=== PATIENT | female | born 1970 | race Two or more races ===

== ENCOUNTER 2017-01-30 06:22 | Day surgery (SDC) | payer OTHER ==
[2017-01-29 16:02] LABS: CHLORIDE,CL 108 mmol/L (98-110); SODIUM,NA 140 mmol/L (136-146)
[~2017-01-30 06:22] MED LIST: Lactated Ringers 1,000 ML IV SCH; Sodium Chloride 0.9% 10 ML Syringe FLUSH PRN; Sodium Chloride 0.9% 2.5 ML Syringe FLUSH PRN
--- NOTE | 2017-01-30 06:55 | PCM.PREANE ---
Preanesthetic Assessment - Anesthesia/Transfusion/Family Hx Anesthesia History: Prior Anesthesia Without Reaction Other Type of Anesthesia Reaction Comment: something in her spinal made her itch during Family History of Anesthesia Reaction: No Transfusion History: No Prior Transfusion(s) - Review of Systems General: No Symptoms Pulmonary: No Symptoms Cardiovascular: No Symptoms Gastrointestinal: No symptoms Neurological: No Symptoms Other: Reports: None - Physical Assessment O2 Sat by Pulse Oximetry: 100 Respiratory Rate: 16 Vital Signs: Last Vital Signs Temp 36.7 C 01/30/17 06:36 Pulse 73 01/30/17 06:36 Resp 16 01/30/17 06:36 BP 140/62 01/30/17 06:36 Pulse Ox 100 01/30/17 06:36 Height: 1.65 m Weight: 93.894 kg ASA Class: 2 Mental Status: Alert & Oriented x3 Airway Class: Mallampati = 2 Dentition: Reports: Normal Dentition Thyro-Mental Finger Breadths: 2 Mouth Opening Finger Breadths: 3 ROM/Head Extension: Full Lungs: Clear to auscultation, Normal respiratory effort Cardiovascular: Regular Rate, Regular Rhythm, No Murmurs - Lab Values: Laboratory Last Values WBC 7.03 K/uL (4.0-11.0) 01/29/17 14:31 RBC 4.90 M/uL (4.30-5.90) 01/29/17 14:31 Hgb 9.5 g/dL (12.0-16.0) L 01/29/17 14:31 Hct 32.1 % (36.0-46.0) L 01/29/17 14:31 MCV 65.5 fL (80.0-98.0) L 01/29/17 14:31 MCH 19.4 pg (27.0-32.0) L 01/29/17 14:31 MCHC 29.6 g/dL (31.0-37.0) L 01/29/17 14:31 RDW Std Deviation 47.1 fl (28.0-62.0) 01/29/17 14:31 RDW Coeff of Merrill 20 % (11.0-15.0) H 01/29/17 14:31 Plt Count 470 K/uL (150-400) H 01/29/17 14:31 MPV 9.20 fL (7.40-12.00) 01/29/17 14:31 Nucleated RBC % 0.0 /100WBC 01/29/17 14:31 Nucleated RBCs # 0 K/uL 01/29/17 14:31 Sodium 140 mmol/L (136-146) 01/29/17 14:31 Potassium 4.3 mmol/L (3.5-5.1) 01/29/17 14:31 Chloride 108 mmol/L (98-110) 01/29/17 14:31 Carbon Dioxide 22 mmol/L (21-31) 01/29/17 14:31 BUN 13 mg/dL (6.0-23.0) 01/29/17 14:31 Creatinine 0.7 mg/dL (0.6-1.5) 01/29/17 14:31 Est Cr Clr Drug Dosing 90.36 mL/min 01/29/17 14:31 Estimated GFR (MDRD) > 60.0 ml/min 01/29/17 14:31 Glucose 93 mg/dL (60-110) 01/29/17 14:31 Calcium 8.8 mg/dL (8.8-10.8) 01/29/17 14:31 HCG, Qual NEGATIVE (NEG) 01/29/17 14:31 Blood Type A NEGATIVE 01/29/17 14:31 Antibody Screen NEGATIVE 01/29/17 14:31 - Allergies Allergies/Adverse Reactions: Allergies Allergy/AdvReac Type Severity Reaction Status Date / Time No Known Allergies Allergy Verified 01/27/17 12:54 - Blood Blood Available: No - Anesthesia Plan Pre-Op Medication Ordered: None - Acknowledgements Anesthesia Type Planned: General Anesthesia Pt an Appropriate Candidate for the Planned Anesthesia: Yes Alternatives and Risks of Anesthesia Discussed w Pt/Guardian: Yes Pt/Guardian Understands and Agrees with Anesthesia Plan: Yes PreAnesthesia Questionnaire Other HEENT History: wears glasses/contacts Cardiovascular History: Reports: None Respiratory History: Reports: None Gastrointestinal History: Reports: None Genitourinary History: Reports: None ERGONOMICS CONSULTANT History: Reports: Fibroids, , Other (see below) ( menometrorrhagia) Musculoskeletal History: Reports: None Neurological History: Reports: None Psychiatric History: Reports: None Endocrine/Metabolic History: Reports: Obesity/BMI 30+ Hematologic History: Reports: Anemia Other Hematologic History: has had recent iron infusions Immunologic History: Reports: None Oncologic (Cancer) History: Reports: None Dermatologic History: Reports: None - Past Surgical History Head Surgeries/Procedures: Reports: None HEENT Surgical History: Reports: Oral surgery Other HEENT Surgeries/Procedures: removal of wisdom teeth Cardiovascular Surgical History: Reports: None Respiratory Surgical History: Reports: None GI Surgical History: Reports: None Female Surgical History: Reports: Breast reduction, section (x3) Endocrine Surgical History: Reports: None Neurological Surgical History: Reports: None Musculoskeletal Surgical History: Reports: None Oncologic Surgical History: Reports: None Dermatological Surgical History: Reports: None - SUBSTANCE USE Smoking Status *Q: Former Smoker (long time ago) Recreational Drug Use History: No - HOME MEDS Home Medications: Home Meds Cholecalciferol (Vitamin D3) [Vitamin D3] 50,000 units PO ASDIRECTED 01/27/17 [ History] Fluticasone Propionate [Flonase Allergy Relief] 1 sprays NASBOTH ASDIRECTED PRN 01/27/17 [History] - CURRENT (IN HOUSE) MEDS Current Meds: Current Medications Lactated Ringer's (Ringers, Lactated) 1,000 mls @ 500 mls/hr IV .BOLUS COBY Last Admin: 01/30/17 06:41 Dose: 500 mls/hr Cefazolin Sodium 3 gm/ Sodium (Chloride) 100 mls @ 100 mls/hr IV ONETIME COBY Stop: 01/30/17 11:14 Sodium Chloride (Saline Flush) 10 ml FLUSH ASDIRECTED PRN PRN Reason: Keep Vein Open Sodium Chloride (Saline Flush) 2.5 ml FLUSH ASDIRECTED PRN PRN Reason: Keep Vein Open
[2017-01-30] MEDS ORDERED: Lidocaine 2% 5 ML SDV ONE (07:33)
[2017-01-30] MEDS ORDERED: Midazolam 1 MG/ML 2 ML SDV ONE (07:33)
[2017-01-30] MEDS ORDERED: fentaNYL 100 MCG/2 ML SDV ONE ×2 (07:33→09:19)
[2017-01-30] MEDS ORDERED: Propofol 200 MG/20 ML SDV ONE ×2 (07:33→08:51)
[2017-01-30] MEDS ORDERED: fentaNYL 250 MCG/5 ML SDV ONE (07:33)
[2017-01-30] MEDS ORDERED: Neostigmine Methylsulfate 1 MG/ML 5 ML Syringe ONE (07:34)
[2017-01-30] MEDS ORDERED: Ondansetron 4 MG/2 ML SDV ONE (07:34)
[2017-01-30] MEDS ORDERED: Ketorolac 30 MG/ML SDV ONE (07:34)
[2017-01-30] MEDS ORDERED: Rocuronium 10 MG/ML 10 ML Syringe ONE (07:34)
[2017-01-30] MEDS ORDERED: Fluorescein 5 ML Vial ONE (07:47)
[2017-01-30] MEDS ORDERED: Octyl 2-Cyanoacrylate 1 Tube ONE (07:47)
[2017-01-30] MEDS ORDERED: HYDROmorphone 2 MG/ML Syringe ONE (08:08)
[2017-01-30] MEDS ORDERED: fentaNYL 100 MCG/2 ML SDV IVPUSH PRN (08:39)
[2017-01-30] MEDS ORDERED: HYDROmorphone 2 MG/ML Syringe IVPUSH ONE (08:39)
[2017-01-30] MEDS ORDERED: Furosemide 40 MG/4 ML VIAL ONE (09:22)
[2017-01-30] MEDS ORDERED: Ondansetron 4 MG/2 ML SDV IVPUSH PRN (09:39)
[2017-01-30] MEDS ORDERED: Ketorolac 30 MG/ML SDV IVPUSH PRN (09:39)
[2017-01-30] MEDS ORDERED: Morphine 4 MG/ML Syringe IVPUSH PRN (09:39)
[2017-01-30] MEDS ORDERED: Ketorolac 30 MG/ML SDV IVPUSH ONE (09:39)
[2017-01-30] MEDS ORDERED: Promethazine 25 MG/ML SDV IM PRN (09:39)
--- NOTE | 2017-01-30 09:43 | PCM.OPNOTE ---
- General Post-Op/Procedure Note Date of Surgery/Procedure: 01/30/17 Operative Procedure(s): TLH BSO Cysto Post-Op Diagnosis: Same Anesthesia Technique: General ET tube Primary Surgeon: Louis Tyler Electronic Assembler Group Leader: Jacy Ralph EBL in mLs: 125 Complications: None Condition: Good
--- NOTE | 2017-01-30 13:56 | OR ---
SURGEON: Louis Tyler MD DATE OF PROCEDURE: PREOPERATIVE DIAGNOSES: 1. Menometrorrhagia. 2. Fibroid uterus, 16 week size. 3. Anemia. POSTOPERATIVE DIAGNOSES: 1. Menometrorrhagia. 2. Fibroid uterus, 16 week size. 3. Anemia. OPERATION PERFORMED: Total laparoscopic hysterectomy, laparoscopic bilateral salpingo-oophorectomy, morcellation of the uterus vaginally, and cystoscopy. STRINGING MACHINE OPERATOR: SWAPNIL Ochoa. ANESTHESIA: General endotracheal intubation by Nico Puga and Dr. Wyatt. ESTIMATED BLOOD LOSS: 125 mL. COMPLICATIONS: None. FINDINGS: Uterus about 16-17 week size with multiple fibroid. INDICATION: [place] refer to the admit note. DESCRIPTION OF PROCEDURE: The patient was brought to the OR, properly identified, and after adequate level of general anesthesia, the patient was placed in lithotomy position with an access to the abdomen and the vagina. The patient was prepped and draped in sterile fashion as usual. Kline catheter was placed in the bladder for drainage and Tommie surgical manipulator was placed in the uterus for manipulation and the internal balloon and external balloon were inflated and held in place. Then, the operation shifted abdominally. Stab wound was done beneath the umbilicus. The Veress needle was placed in the peritoneal cavity and that cavity insufflated to 6 L carbon dioxide. The skin incision was enlarged to accommodate the trocar and the laparoscope through a 5-mm trocar utilizing the Visiport technique to enter. Once we are entered, the patient was placed in steep Trendelenburg and 10-12 trocar placed in the left iliac fossa and two 5 mm trocar, one suprapubically, one in the right iliac fossa done under direct vision. The operation started by identifying the landmark of the pelvis and the round ligament in superior ligament and the ovarian pedicle. Then, we started by making sure the ureter away from harm's way, the superior pedicles, which is coagulated, transected using the BETTINA-7 harmonic scapula. The tubes and ovaries included with the specimen. Then, the round ligament was done in the same way and then the anterior leaf of the broad ligament dissected downward medially. The patient has had 3 previous section with a sharp and blunt dissection. The bladder was totally dissected away from the operative field and easily palpable through the vagina. Then skeletonization of the uterine vessel was done and then again with the ureter away from harm's way the uterine vessel coagulated, transected on both sides using the BETTINA-7 Harmonic scapula, and then using the BETTINA-7 Harmonic scapula circular incision was done at the tip of the rings of the manipulator in a circular manner detaching the cervix from its attachment to the vagina. Once this was done, then with the operation shifted vaginally and I started morcellating the uterus in the usual manner. To reduce the size, once the morcellation was done and complete, the uterus was easily removed. Once the uterus was removed, then vaginal pack was placed in the vagina and the abdomen reinflated, thorough irrigation of the abdomen that shows no oozing, no bleeding. I proceeded to close the vaginal cuff laparoscopically using 2-0 PDS interrupted suture. While we were doing that, we asked the anesthesiologist to give the patient fluorescein and after closing the vagina, all the pedicle inspected. There was no oozing, no bleeding. Then, the abdomen was deflated and the patient was placed flat on the table. The Kline catheter was removed. Cystoscopy was performed. The bladder was intact. Both ureteric orifices were seen with the dye coming from both of them. Thus, the patency of the both ureters verified, satisfied with these findings. The procedure was ended after closing the laparoscopic incision in layer. Instrument and sponge count were correct. The patient tolerated the procedure well and went to recovery room in stable general condition. BHAVNA / MEAGAN /[id number]
[2017-01-30] MEDS: Acetaminophen/oxyCODONE 325-5 MG Tab PO PRN (16:52)
--- NOTE | 2017-01-30 20:51 | PCM48HPAN ---
Post Anesthesia Note - EVALUATION WITHIN 48HRS OF ANESTHETIC Vital Signs in Normal Range: Yes Patient Participated in Evaluation: Yes Respiratory Function Stable: Yes Airway Patent: Yes Cardiovascular Function Stable: Yes Hydration Status Stable: Yes Pain Control Satisfactory: Yes Nausea and Vomiting Control Satisfactory: No (a little nausea recieving zofran) Mental Status Recovered: Yes
[2017-01-31] MEDS: Acetaminophen/oxyCODONE 325-5 MG Tab PO PRN (03:46)
[2017-01-31 05:25] LABS: CHLORIDE,CL 108 mmol/L (98-110); SODIUM,NA 137 mmol/L (136-146)
[2017-01-31 08:14] VITALS: BP 107/59
--- NOTE | 2017-01-31 08:38 | PCM.SURGPN ---
- General Info Date of Service: 01/31/17 POD#: 1 Functional Status: Reports: pain controlled - Review of Systems General: Reports: No Symptoms HEENT: Reports: no symptoms Pulmonary: Reports: no symptoms Cardiovascular: Reports: No Symptoms Gastrointestinal: Reports: No symptoms Genitourinary: Reports: no symptoms Musculoskeletal: Reports: no symptoms Skin: Reports: no symptoms Neurological: Reports: No Symptoms Psychiatric: Reports: no symptoms - Patient Data Vitals - most recent: Last Vital Signs Temp 37.2 C 01/31/17 08:00 Pulse 71 01/31/17 08:00 Resp 18 01/31/17 08:00 BP 107/59 L 01/31/17 08:00 Pulse Ox 96 01/31/17 08:00 Weight - most recent: 93.894 kg I&O - last 24 hours: Intake & Output 01/30/17 01/31/17 01/31/17 22:59 06:59 14:59 Output Total 400 Balance -400 Lab Results last 24 hrs: Laboratory Results - last 24 hr 01/31/17 01/31/17 Range/Units 04:48 04:48 WBC 8.71 (4.0-11.0) K/uL RBC 4.54 (4.30-5.90) M/uL Hgb 8.6 L (12.0-16.0) g/dL Hct 29.5 L (36.0-46.0) % MCV 65.0 L (80.0-98.0) fL MCH 18.9 L (27.0-32.0) pg MCHC 29.2 L (31.0-37.0) g/dL RDW Std Deviation 45.6 (28.0-62.0) fl RDW Coeff of Merrill 19 H (11.0-15.0) % Plt Count 395 (150-400) K/uL MPV 9.40 (7.40-12.00) fL Neut % (Auto) 69.7 (48.0-80.0) % Lymph % (Auto) 16.2 (16.0-40.0) % Irwin % (Auto) 12.2 (0.0-15.0) % Eos % (Auto) 1.4 (0.0-7.0) % Baso % (Auto) 0.5 (0.0-1.5) % Neut # (Auto) 6.1 H (1.4-5.7) K/uL Lymph # (Auto) 1.4 (0.6-2.4) K/uL Irwin # (Auto) 1.1 H (0.0-0.8) K/uL Eos # (Auto) 0.1 (0.0-0.7) K/uL Baso # (Auto) 0.0 (0.0-0.1) K/uL Nucleated RBC % 0.0 /100WBC Nucleated RBCs # 0 K/uL Sodium 137 (136-146) mmol/L Potassium 4.2 (3.5-5.1) mmol/L Chloride 108 (98-110) mmol/L Carbon Dioxide 21 (21-31) mmol/L BUN 7 (6.0-23.0) mg/dL Creatinine 0.7 (0.6-1.5) mg/dL Est Cr Clr Drug Dosing 90.36 mL/min Estimated GFR (MDRD) > 60.0 ml/min Glucose 116 H (60-110) mg/dL Calcium 8.3 L (8.8-10.8) mg/dL Med Orders - Current: Current Medications Fentanyl (Sublimaze) 50 mcg IVPUSH Q5M PRN PRN Reason: Pain (severe 7-10) Stop: 01/31/17 08:39 Lactated Ringer's (Ringers, Lactated) 1,000 mls @ 500 mls/hr IV .BOLUS COBY Last Admin: 01/30/17 06:41 Dose: 500 mls/hr Ketorolac Tromethamine (Toradol) 30 mg IVPUSH Q6H PRN PRN Reason: Pain (severe 7-10) Stop: 02/04/17 09:40 Morphine Sulfate (Morphine) 4 mg IVPUSH Q2H PRN PRN Reason: Pain (severe 7-10) Ondansetron HCl (Zofran) 4 mg IVPUSH Q6H PRN PRN Reason: Nausea/Vomiting Last Admin: 01/30/17 20:12 Dose: 4 mg Oxycodone/Acetaminophen (Percocet 325-5 Mg) 2 tab PO Q4H PRN PRN Reason: Pain (moderate 4-6) Last Admin: 01/31/17 03:46 Dose: 1 tab Promethazine HCl (Phenergan) 25 mg IM Q6H PRN PRN Reason: Nausea/Vomiting Sodium Chloride (Saline Flush) 10 ml FLUSH ASDIRECTED PRN PRN Reason: Keep Vein Open Sodium Chloride (Saline Flush) 2.5 ml FLUSH ASDIRECTED PRN PRN Reason: Keep Vein Open Discontinued Medications Fentanyl (Sublimaze) Confirm Administered Dose 100 mcg .ROUTE .STK-MED ONE Stop: 01/30/17 07:34 Fentanyl (Sublimaze) Confirm Administered Dose 250 mcg .ROUTE .STK-MED ONE Stop: 01/30/17 07:34 Fentanyl (Sublimaze) Confirm Administered Dose 100 mcg .ROUTE .STK-MED ONE Stop: 01/30/17 09:20 Fluorescein Sodium (Ak-Fluor) Confirm Administered Dose 5 ml .ROUTE .STK-MED ONE Stop: 01/30/17 07:48 Furosemide (Lasix) Confirm Administered Dose 40 mg .ROUTE .STK-MED ONE Stop: 01/30/17 09:23 Glycopyrrolate () Confirm Administered Dose 1 mg .ROUTE .STK-MED ONE Stop: 01/30/17 07:35 Hydromorphone HCl (Dilaudid) Confirm Administered Dose 2 mg .ROUTE .STK-MED ONE Stop: 01/30/17 08:09 Hydromorphone HCl (Dilaudid) 0 mg IVPUSH ONETIME ONE Stop: 01/30/17 08:40 Cefazolin Sodium 3 gm/ Sodium (Chloride) 100 mls @ 100 mls/hr IV ONETIME COBY Stop: 01/30/17 11:14 Ketorolac Tromethamine (Toradol) Confirm Administered Dose 30 mg .ROUTE .STK- MED ONE Stop: 01/30/17 07:35 Ketorolac Tromethamine (Toradol) 30 mg IVPUSH ONETIME ONE Stop: 01/30/17 09:40 Lidocaine (Xylocaine-Mpf 2%) Confirm Administered Dose 10 ml .ROUTE .STK-MED ONE Stop: 01/30/17 07:34 Midazolam HCl (Versed 1 Mg/Ml) Confirm Administered Dose 2 mg .ROUTE .STK-MED ONE Stop: 01/30/17 07:34 Neostigmine Methylsulfate (Neostigmine) Confirm Administered Dose 5 mg .ROUTE .STK-MED ONE Stop: 01/30/17 07:35 Octyl Cyanoacrylate (Dermabond Advance) Confirm Administered Dose 1 applic .ROUTE .STK-MED ONE Stop: 01/30/17 07:48 Ondansetron HCl (Zofran) Confirm Administered Dose 4 mg .ROUTE .STK-MED ONE Stop: 01/30/17 07:35 Propofol (Diprivan 20 Ml) Confirm Administered Dose 400 mg .ROUTE .STK-MED ONE Stop: 01/30/17 07:34 Propofol (Diprivan 20 Ml) Confirm Administered Dose 200 mg .ROUTE .STK-MED ONE Stop: 01/30/17 08:52 Rocuronium [place] (Zemuron) Confirm Administered Dose 100 mg .ROUTE .STK-MED ONE Stop: 01/30/17 07:35 - Exam Wound/Incisions: healing well General: alert, oriented HEENT: Pupils equal Neck: supple Lungs: Clear to auscultation, Normal respiratory effort Cardiovascular: Regular Rate, Regular Rhythm Abdomen: bowel sounds present, soft, no tenderness, no distension Extremities: no edema Skin: warm, dry, intact Neurological: no new focal deficit Psy/Mental Status: alert, normal affect, normal mood - Problem List Review Problem List Initiated/Reviewed/Updated: Yes - My Orders Last 24 Hours: Active Orders 24 hr Category Date Time Status Patient Status [ADT] Routine ADT 01/30/17 09:40 Active Antiembolic Devices [RC] PER UNIT ROUTINE Care 01/30/17 09:40 Active Notify Provider Vital Signs [RC] ASDIRECTED Care 01/30/17 09:40 Active RT Incentive Spirometry [RC] Q2HWA Care 01/30/17 09:40 Active Ready for Discharge [RC] PER UNIT ROUTINE Care 01/31/17 08:28 Active Up With Assistance [RC] PER UNIT ROUTINE Care 01/30/17 09:40 Active Up ad Marilyn [RC] PER UNIT ROUTINE Care 01/30/17 09:40 Active Vital Signs [RC] PER UNIT ROUTINE Care 01/30/17 09:40 Active Regular Diet [DIET] Diet 01/30/17 Lunch Active Acetaminophen/oxyCODONE [Percocet 325-5 MG] Med 01/30/17 09:39 Active 2 tab PO Q4H PRN Ketorolac [Toradol] Med 01/30/17 09:39 Active 30 mg IVPUSH Q6H PRN Morphine Med 01/30/17 09:39 Active 4 mg IVPUSH Q2H PRN Ondansetron [Zofran] Med 01/30/17 09:39 Active 4 mg IVPUSH Q6H PRN Promethazine [Phenergan] Med 01/30/17 09:39 Active 25 mg IM Q6H PRN fentaNYL [Sublimaze] Med 01/30/17 08:39 Active 50 mcg IVPUSH Q5M PRN Peripheral IV Discontinue [OM.PC] Routine Oth 01/30/17 09:40 Ordered Sequential Compression Device [OM.PC] Per Unit Routine Oth 01/30/17 09:40 Ordered Resuscitation Status Routine Resus Stat 01/30/17 09:39 Ordered Medication Orders Fentanyl (Sublimaze) 50 mcg IVPUSH Q5M PRN PRN Reason: Pain (severe 7-10) Stop: 01/31/17 08:39 Lactated Ringer's (Ringers, Lactated) 1,000 mls @ 500 mls/hr IV .BOLUS COBY Last Admin: 01/30/17 06:41 Dose: 500 mls/hr Ketorolac Tromethamine (Toradol) 30 mg IVPUSH Q6H PRN PRN Reason: Pain (severe 7-10) Stop: 02/04/17 09:40 Morphine Sulfate (Morphine) 4 mg IVPUSH Q2H PRN PRN Reason: Pain (severe 7-10) Ondansetron HCl (Zofran) 4 mg IVPUSH Q6H PRN PRN Reason: Nausea/Vomiting Last Admin: 01/30/17 20:12 Dose: 4 mg Oxycodone/Acetaminophen (Percocet 325-5 Mg) 2 tab PO Q4H PRN PRN Reason: Pain (moderate 4-6) Last Admin: 01/31/17 03:46 Dose: 1 tab Admin: 01/30/17 16:52 Dose: 2 tab Promethazine HCl (Phenergan) 25 mg IM Q6H PRN PRN Reason: Nausea/Vomiting Sodium Chloride (Saline Flush) 10 ml FLUSH ASDIRECTED PRN PRN Reason: Keep Vein Open Sodium Chloride (Saline Flush) 2.5 ml FLUSH ASDIRECTED PRN PRN Reason: Keep Vein Open - Assessment Assessment (Free Text/Narrative):: Status post total laparoscopic hysterectomy and laparoscopic bilateral salpingo- oophorectomy postoperative day #1 vital signs stable patient on regular diet voiding without any problem no vaginal bleeding her pain is minimum - Plan Plan (Free Text/Narrative):: And sending her home today the post hysterectomy instruction given to the patient prescription for Percocet 7.5/325 was given to the patient for postoperative pain and she is to come to the office one week after discharge for postoperative check
--- NOTE | 2017-01-31 08:39 | PCM.DCSUM1 ---
Discharge Summary - Discharge Data Discharge Date: 01/31/17 Discharge Disposition: Home, Self-Care 01 Condition: Good - Patient Summary/Data Operative Procedure(s) Performed: TLH BSO Cysto - Patient Instructions Diet: Usual Diet as Tolerated Activity: As Tolerated Driving: Do Not Drive Showering/Bathing: February Shower Wound/Incision Care: Keep Operative Site/Wound Site Clean and Dry Notify Provider of: Fever, Increased Pain, Nausea and/or Vomiting - Discharge Plan Prescriptions/Med Rec: oxyCODONE HCl/Acetaminophen [Percocet 7.5-325 mg Tablet] 1 each PO Q4H PRN #30 tablet PRN Reason: Pain Home Medications: Home Meds Cholecalciferol (Vitamin D3) [Vitamin D3] 50,000 units PO ASDIRECTED 01/27/17 [ History] Fluticasone Propionate [Flonase Allergy Relief] 1 sprays NASBOTH ASDIRECTED PRN 01/27/17 [History] oxyCODONE HCl/Acetaminophen [Percocet 7.5-325 mg Tablet] 1 each PO Q4H PRN #30 tablet 01/31/17 [Rx] Patient Handouts: Acetaminophen; Oxycodone tablets, Total Laparoscopic Hysterectomy, Care After Referrals: [facility] [Outside] Louis Tyler MD [Physician] - (1 week- February 05 @ 10:00am w/ Dr. Tyler 6 week- March 12 @ 10:45am w/ Dr. Tyler) - General Info Date of Service: 01/31/17 Functional Status: Reports: pain controlled - Review of Systems General: Reports: No Symptoms HEENT: Reports: no symptoms Pulmonary: Reports: no symptoms Cardiovascular: Reports: No Symptoms Gastrointestinal: Reports: No symptoms Genitourinary: Reports: no symptoms Musculoskeletal: Reports: no symptoms Skin: Reports: no symptoms Neurological: Reports: No Symptoms Psychiatric: Reports: no symptoms - Patient Data Vitals - Most Recent: Last Vital Signs Temp 37.2 C 01/31/17 08:00 Pulse 71 01/31/17 08:00 Resp 18 01/31/17 08:00 BP 107/59 L 01/31/17 08:00 Pulse Ox 96 01/31/17 08:00 Weight - Most Recent: 93.894 kg I&O - Last 24 hours: Intake & Output 01/30/17 01/31/17 01/31/17 22:59 06:59 14:59 Output Total 400 Balance -400 Lab Results - Last 24 hrs: Laboratory Results - last 24 hr 01/31/17 01/31/17 Range/Units 04:48 04:48 WBC 8.71 (4.0-11.0) K/uL RBC 4.54 (4.30-5.90) M/uL Hgb 8.6 L (12.0-16.0) g/dL Hct 29.5 L (36.0-46.0) % MCV 65.0 L (80.0-98.0) fL MCH 18.9 L (27.0-32.0) pg MCHC 29.2 L (31.0-37.0) g/dL RDW Std Deviation 45.6 (28.0-62.0) fl RDW Coeff of [place]ill 19 H (11.0-15.0) % Plt Count 395 (150-400) K/uL MPV 9.40 (7.40-12.00) fL Neut % (Auto) 69.7 (48.0-80.0) % Lymph % (Auto) 16.2 (16.0-40.0) % [place] % (Auto) 12.2 (0.0-15.0) % Eos % (Auto) 1.4 (0.0-7.0) % Baso % (Auto) 0.5 (0.0-1.5) % Neut # (Auto) 6.1 H (1.4-5.7) K/uL Lymph # (Auto) 1.4 (0.6-2.4) K/uL [place] # (Auto) 1.1 H (0.0-0.8) K/uL Eos # (Auto) 0.1 (0.0-0.7) K/uL Baso # (Auto) 0.0 (0.0-0.1) K/uL Nucleated RBC % 0.0 /100WBC Nucleated RBCs # 0 K/uL Sodium 137 (136-146) mmol/L Potassium 4.2 (3.5-5.1) mmol/L Chloride 108 (98-110) mmol/L Carbon Dioxide 21 (21-31) mmol/L BUN 7 (6.0-23.0) mg/dL Creatinine 0.7 (0.6-1.5) mg/dL Est Cr Clr Drug Dosing 90.36 mL/min Estimated GFR (MDRD) > 60.0 ml/min Glucose 116 H (60-110) mg/dL Calcium 8.3 L (8.8-10.8) mg/dL Med Orders - Current: Current Medications Fentanyl (Sublimaze) 50 mcg IVPUSH Q5M PRN PRN Reason: Pain (severe 7-10) Stop: 01/31/17 08:39 Lactated Ringer's (Ringers, Lactated) 1,000 mls @ 500 mls/hr IV .BOLUS COBY Last Admin: 01/30/17 06:41 Dose: 500 mls/hr Ketorolac Tromethamine (Toradol) 30 mg IVPUSH Q6H PRN PRN Reason: Pain (severe 7-10) Stop: 02/04/17 09:40 Morphine Sulfate (Morphine) 4 mg IVPUSH Q2H PRN PRN Reason: Pain (severe 7-10) Ondansetron HCl (Zofran) 4 mg IVPUSH Q6H PRN PRN Reason: Nausea/Vomiting Last Admin: 01/30/17 20:12 Dose: 4 mg Oxycodone/Acetaminophen (Percocet 325-5 Mg) 2 tab PO Q4H PRN PRN Reason: Pain (moderate 4-6) Last Admin: 01/31/17 03:46 Dose: 1 tab Promethazine HCl (Phenergan) 25 mg IM Q6H PRN PRN Reason: Nausea/Vomiting Sodium Chloride (Saline Flush) 10 ml FLUSH ASDIRECTED PRN PRN Reason: Keep Vein Open Sodium Chloride (Saline Flush) 2.5 ml FLUSH ASDIRECTED PRN PRN Reason: Keep Vein Open Discontinued Medications Fentanyl (Sublimaze) Confirm Administered Dose 100 mcg .ROUTE .STK-MED ONE Stop: 01/30/17 07:34 Fentanyl (Sublimaze) Confirm Administered Dose 250 mcg .ROUTE .STK-MED ONE Stop: 01/30/17 07:34 Fentanyl (Sublimaze) Confirm Administered Dose 100 mcg .ROUTE .STK-MED ONE Stop: 01/30/17 09:20 Fluorescein Sodium (Ak-Fluor) Confirm Administered Dose 5 ml .ROUTE .STK-MED ONE Stop: 01/30/17 07:48 Furosemide (Lasix) Confirm Administered Dose 40 mg .ROUTE .STK-MED ONE Stop: 01/30/17 09:23 Glycopyrrolate () Confirm Administered Dose 1 mg .ROUTE .STK-MED ONE Stop: 01/30/17 07:35 Hydromorphone HCl (Dilaudid) Confirm Administered Dose 2 mg .ROUTE .STK-MED ONE Stop: 01/30/17 08:09 Hydromorphone HCl (Dilaudid) 0 mg IVPUSH ONETIME ONE Stop: 01/30/17 08:40 Cefazolin Sodium 3 gm/ Sodium (Chloride) 100 mls @ 100 mls/hr IV ONETIME COBY Stop: 01/30/17 11:14 Ketorolac Tromethamine (Toradol) Confirm Administered Dose 30 mg .ROUTE .STK- MED ONE Stop: 01/30/17 07:35 Ketorolac Tromethamine (Toradol) 30 mg IVPUSH ONETIME ONE Stop: 01/30/17 09:40 Lidocaine (Xylocaine-Mpf 2%) Confirm Administered Dose 10 ml .ROUTE .STK-MED ONE Stop: 01/30/17 07:34 Midazolam HCl (Versed 1 Mg/Ml) Confirm Administered Dose 2 mg .ROUTE .STK-MED ONE Stop: 01/30/17 07:34 Neostigmine Methylsulfate (Neostigmine) Confirm Administered Dose 5 mg .ROUTE .STK-MED ONE Stop: 01/30/17 07:35 Octyl Cyanoacrylate (Dermabond Advance) Confirm Administered Dose 1 applic .ROUTE .STK-MED ONE Stop: 01/30/17 07:48 Ondansetron HCl (Zofran) Confirm Administered Dose 4 mg .ROUTE .STK-MED ONE Stop: 01/30/17 07:35 Propofol (Diprivan 20 Ml) Confirm Administered Dose 400 mg .ROUTE .STK-MED ONE Stop: 01/30/17 07:34 Propofol (Diprivan 20 Ml) Confirm Administered Dose 200 mg .ROUTE .STK-MED ONE Stop: 01/30/17 08:52 Rocuronium Nemo (Zemuron) Confirm Administered Dose 100 mg .ROUTE .STK-MED ONE Stop: 01/30/17 07:35 - Exam General: Reports: alert, oriented HEENT: Reports: Pupils equal, Pupils reactive, EOMI, Mucous membr. moist/pink Neck: Reports: supple Lungs: Reports: Clear to auscultation, Normal respiratory effort Cardiovascular: Reports: Regular Rate, Regular Rhythm Abdomen: Reports: bowel sounds present, soft, no tenderness, no distension (Female) Exam: Normal external exam, Normal speculum exam, Normal bimanual exam Rectal (Female) Exam: Normal Exam, Normal rectal tone Back Exam: Reports: normal inspection, full range of motion Extremities: Reports: no edema, normal pulses Skin: Reports: warm, dry, intact Wound/Incisions: Reports: healing well Neurological: Reports: no new focal deficit Psy/Mental Status: Reports: alert, normal affect, normal mood *Q Meaningful Use (DIS) - VTE *Q VTE Criteria *Q: - Stroke *Q Stroke Criteria *Q: - AMI *Q AMI Criteria *Q:
== END 2017-01-31 09:09 | disposition home or self-care (01) ==
LOC: MW.SDS 06:22 → MW.OB 14:46 → MW.SDS 01-31 09:09
PROVIDERS: ATTEND Obstetrics & Gynecology
PROC: 0UT94ZZ Resection of Uterus, Percutaneous Endoscopic Approach (ICD-10-PCS; principal; 2017-01-30)
PROC: 0UTC4ZZ Resection of Cervix, Percutaneous Endoscopic Approach (ICD-10-PCS; 2017-01-30)
PROC: 0UT24ZZ Resection of Bilateral Ovaries, Percutaneous Endoscopic Approach (ICD-10-PCS; 2017-01-30)
PROC: 0UT74ZZ Resection of Bilateral Fallopian Tubes, Percutaneous Endoscopic Approach (ICD-10-PCS; 2017-01-30)
DX: D25.9 Leiomyoma of uterus, unspecified (principal); E66.9 Obesity, unspecified; Z87.891 Personal history of nicotine dependence; Z98.890 Other specified postprocedural states
CPT/HCPCS: 36415; 58573; 80048; 84703; 85025; 85027; 86850; 86900; 86901; A9270; J0690; J1170; J1885; J1940; J2250; J2405; J3010; J7030; J7120; 00944; 88309; J2704